=== PATIENT | female | born 1955 | race Caucasian/White ===

== ENCOUNTER 2024-01-27 06:33 | Observation (INO) | payer MEDICARE, BC ==
[2024-01-25 12:18] LABS: BASOPHILS % (AUTO) 0.6 % (0-1); EOSINOPHILS # (AUTO) 0.1 X10'3 (0-0.9); EOSINOPHILS % (AUTO) 1.7 % (0-6); LYMPHOCYTES # (AUTO) 2.1 X10'3 (1.1-4.8); LYMPHOCYTES % (AUTO) 40.4 % (21-51); MEAN CORPUSCULAR HEMOGLOBIN 32.1 PG (27.0-31.0); MEAN CORPUSCULAR HGB CONC 33.8 g/dL (33.0-36.5); MEAN CORPUSCULAR VOLUME 94.9 FL (78-98); MEAN PLATELET VOLUME 8.9 FL (7.4-10.4); MONOCYTES # (AUTO) 0.5 X10'3 (0-0.9); MONOCYTES % (AUTO) 9.5 % (2-12); NEUTROPHILS # (AUTO) 2.5 X10'3 (1.8-7.7); NEUTROPHILS % (AUTO) 47.8 % (42-75); PRE OP HEMATOCRIT 41.4 % (35.0-45.0); PRE OP PLATELET COUNT 221 X10'3 (140-440); PRE OP WHITE BLOOD COUNT 5.2 10'3 (4.8-10.8); RED BLOOD COUNT 4.37 X10'6 (4.20-5.60); RED CELL DISTRIBUTION WIDTH 13.2 % (11.5-14.5)
[2024-01-25 12:38] LABS: PRE OP INR 0.9 INR; PRE OP PROTIME 10.1 SECONDS (9.0-12.0)
[2024-01-25 12:40] LABS: ALBUMIN 3.9 G/DL (3.4-5.0); ALBUMIN/GLOBULIN RATIO 1.2 (1.1-1.5); ALKALINE PHOSPHATASE 84 IU/L (46-116); BLOOD UREA NITROGEN 12 MG/DL (7-18); BUN/CREATININE RATIO 13.2 (10.0-20.0); CALCIUM 10.6 MG/DL (8.5-10.1); CHLORIDE 106 MMOL/L (99-107); CREATININE 0.91 MG/DL (0.40-0.90); PRE OP ALT 64 U/L (30-65); PRE OP ANION GAP 4 (8-16); PRE OP AST 31 U/L (10-37); PRE OP BILIRUB, TOTAL 0.4 MG/DL (0.0-1.0); PRE OP GLUCOSE 101 MG/DL (70-104); PRE OP POTASSIUM 4.5 MMOL/L (3.4-5.1); PRE OP SODIUM 141 MMOL/L (135-145); TOTAL CARBON DIOXIDE 31.3 MMOL/L (24-32); TOTAL PROTEIN 7.1 G/DL (6.4-8.2); eGFR 61 ML/MIN
[2024-01-27] VITALS (27 sets, daily range): BP systolic 95–152; BP diastolic 52–94; PULSE 65–111; RESP 9–18; TEMP 97.6–97.9; O2SAT 92–100
[~2024-01-27] VITALS: Ht 149.9 cm; Wt 74.0 kg
[2024-01-27] MEDS: ringers solution, lacted 1,000 ML IV SCH ×3 (05:30→21:24)
[~2024-01-27 06:33] MED LIST: AZEL205.2 BOTHNARES; BENA40TA90 PO; DOXY-1 PO; DULO20CA18 PO; LANS30CA56 PO; LEVO5TAB13 PO; METO-395 PO; MONT-40 PO; ROSU40TA71 PO
[2024-01-27] MEDS: cefazolin 2gm/D5W 100mL 100 ML IV ONE ×2 (06:52→12:20)
[2024-01-27] MEDS: DOCUMENT DATE & TIME OF BETA-BLOCKER PO ONE (06:53)
[2024-01-27] MEDS: BUPIVAcaine 2.5mg/ml inj 50ml vial (contains preservative) ONE (07:32)
[2024-01-27] MEDS: methylene blue (5mg/ml) 50mg/10ml ampul IV ONE (07:32)
[2024-01-27] MEDS: famotidine 20mg tablet PO ONE (07:33)
[2024-01-27] MEDS: BUPIVACAINE liposomal/PF 13.3 MG/ML vial IM ONE (07:34)
[2024-01-27] MEDS ORDERED: proCHLORperazine 10 MG/2 ml inj IV PRN (08:10)
[2024-01-27] MEDS ORDERED: HYDROmorphone/PF 0.2 MG/ML SYRINGE IV PRN ×2 (08:10)
[2024-01-27] MEDS ORDERED: morphine 2 MG/ML inj. syringe IV PRN (08:10)
[2024-01-27] MEDS ORDERED: morphine 4 MG/ML inj SYRINge IV PRN (08:10)
[2024-01-27] MEDS ORDERED: hydrALAZINE 20mg/ml inj. IV PRN (08:10)
[2024-01-27] MEDS ORDERED: ondansetron/PF 4mg/2ml inj IV PRN ×2 (08:10→12:05)
[2024-01-27] MEDS ORDERED: meperidine/PF 25mg/ml syringe IV PRN (08:10)
[2024-01-27] MEDS ORDERED: labetalol 20mg/4ml (5mg/ml) syringe IV PRN (08:10)
[2024-01-27] MEDS ORDERED: midazolam 1 mg/ML 2ml injection ONE (08:23)
[2024-01-27] MEDS ORDERED: fentaNYL /PF 50mcg/ml 5ml ampule ONE (08:27)
[2024-01-27] MEDS ORDERED: sevoflurane 250ml liquid IH ONE (08:31)
[2024-01-27] MEDS: BUPIVAcaine/PF 2.5mg/ml (0.25%) 10ml vial ONE (08:39)
[2024-01-27] MEDS ORDERED: propofol inj 20 ML IV ONE (09:34)
[2024-01-27] MEDS ORDERED: ondansetron/PF 4mg/2ml inj ONE (09:34)
[2024-01-27] MEDS ORDERED: LIDOcaine 2% (20mg/ml) 5ml vial ONE (09:34)
[2024-01-27] MEDS ORDERED: dexamethasone sod phosphate 4mg/ml inj. ONE (09:34)
[2024-01-27] MEDS ORDERED: rocuronium 10mg/ml inj IV ONE (09:34)
[2024-01-27] MEDS ORDERED: morphine 10mg/ml inj. ONE (10:14)
[2024-01-27] MEDS ORDERED: 0.9 % SODIUM CHLORIDE 10 ML VIAL ONE (10:36)
[2024-01-27] MEDS ORDERED: ePHEDrine 50MG/ML INJ. ONE (10:36)
[2024-01-27] MEDS: BUPIVAcaine/PF 5 mg/ml 10ml IJ ONE (11:19)
[2024-01-27] MEDS: acetaminophen 1,000mg/100ml IV 100 ML IV ONE (12:03)
[2024-01-27] MEDS ORDERED: CEFAZOLIN 2 GM injection IM ONE (12:05)
[2024-01-27] MEDS: HYDROcodone/acetaminophen 5mg/325mg tablet PO PRN (15:05)
[2024-01-27] MEDS: cefazolin 2gm/D5W 100mL 100 ML IV SCH (16:36)
[2024-01-28 04:24] LABS: BASOPHILS % (AUTO) 0.1 % (0-1); EOSINOPHILS % (AUTO) 0 % (0-6); HEMATOCRIT 34.3 % (35.0-45.0); HEMOGLOBIN 11.3 g/dl (12.0-16.0); LYMPHOCYTES # (AUTO) 1.5 X10'3 (1.1-4.8); LYMPHOCYTES % (AUTO) 12.1 % (21-51); MEAN CORPUSCULAR HEMOGLOBIN 31.4 PG (27.0-31.0); MEAN CORPUSCULAR HGB CONC 32.9 g/dL (33.0-36.5); MEAN CORPUSCULAR VOLUME 95.3 FL (78-98); MEAN PLATELET VOLUME 9.1 FL (7.4-10.4); MONOCYTES % (AUTO) 8.1 % (2-12); NEUTROPHILS # (AUTO) 9.5 X10'3 (1.8-7.7); NEUTROPHILS % (AUTO) 79.7 % (42-75); PLATELET COUNT 196 X10'3 (140-440); RED CELL DISTRIBUTION WIDTH 13.5 % (11.5-14.5)
[2024-01-28 06:19] VITALS: BP 126/68; PULSE 70; RESP 18; TEMP 97.8; O2SAT 97
[2024-01-28 10:00] VITALS: BP 109/58; PULSE 70; RESP 16; TEMP 97.5; O2SAT 95
[2024-01-28 11:19] LABS: HEMATOCRIT 31.9 % (35.0-45.0); HEMOGLOBIN 10.6 g/dl (12.0-16.0); MEAN CORPUSCULAR HEMOGLOBIN 31.7 PG (27.0-31.0); MEAN CORPUSCULAR HGB CONC 33.4 g/dL (33.0-36.5); MEAN PLATELET VOLUME 8.6 FL (7.4-10.4); PLATELET COUNT 174 X10'3 (140-440); RED BLOOD COUNT 3.36 X10'6 (4.20-5.60); RED CELL DISTRIBUTION WIDTH 13.4 % (11.5-14.5); WHITE BLOOD COUNT 10.7 X10'3 (4.5-11.0)
== END 2024-01-28 15:40 | disposition home or self-care (01) ==
LOC: PAS 06:33 → SUR 3N 12:07
PROVIDERS: ADMIT Surgery; ATTEND Surgery
DX: C50.912 Malignant neoplasm of unspecified site of left female breast (principal); I10 Essential (primary) hypertension; E11.9 Type 2 diabetes mellitus without complications; F14.90 Cocaine use, unspecified, uncomplicated; F12.90 Cannabis use, unspecified, uncomplicated; E78.5 Hyperlipidemia, unspecified; F41.9 Anxiety disorder, unspecified; Z90.710 Acquired absence of both cervix and uterus; Z79.899 Other long term (current) drug therapy
CPT/HCPCS: 19303; 38525; 38900; 80053; 82948; 85027; 85610; 85730; 86885; 86900; 86901; 93005; 96365; 96366; 96375; A4215; A4615; A4618; A6213; A7000; C9290; G0378; J0690; J2710; J3490; J7120; Q9968; 36415; 85025; 88307; 88342; 96376; A6253; A6449; C9250; J0131; J0665; J1100; J2250; J2274; J2405; J2704; J3010